=== PATIENT | female | born 1995 | race Caucasian/White ===

== ENCOUNTER 2017-11-17 14:00 | Emergency (ER) | payer OTHER ==
[2017-11-17 14:13] VITALS: TEMP 98.8
--- NOTE | 2017-11-17 14:33 | EDPHY ---
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 Last night she became ill with fever and diarrhea. The illness began during the night--she awoke drenched in sweat felt somewhat out of it and confused and thought that she had a fever. She has had 3 bouts of diarrhea since then and several other episodes of subjective fever. She has been taking ibuprofen and last took 2 ibuprofen 5 hr ago. She has not had diarrhea for the past 4 hr. She had some nausea earlier but no vomiting. She had some mild abdominal pain but is not currently in pain. She has not had cough, sore throat, myalgias, headache. She did have influenza in July and what was tested for it at that time. REVIEW OF SYSTEMS: A ten point review of systems was performed and is negative with the exception of the items mentioned in the HPI. 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 She does not use tobacco products. She is here with her mother, who lives in [facility]. General Appearance: Alert. Vital signs reviewed. Blood pressure 141/83 at triage. Eyes: Pupils equal and round, no conjunctival injection, no discharge. Anicteric. ENT, Mouth: Mucous membranes are moist, no oropharyngeal erythema or edema. Tympanic membranes normal. Neck: No lymphadenopathy, supple. Respiratory: Lungs are clear to auscultation; no wheezes, rales, or rhonchi. Cardiovascular: Regular rate and rhythm; no murmur, rub, or gallop. Gastrointestinal: Abdomen is soft and nontender, no masses or organomegaly, bowel sounds normal. Skin: Warm and dry, no rashes on exposed skin, normal color. Back: Nontender to palpation over the thoracolumbar spine. No CVAT. Extremities: No lower extremity edema, no calf tenderness or swelling. Neurological: Alert and oriented. Moving all four extremities easily and equally. Psychiatric: Normal affect. - Personal History Current Tetanus/Diphtheria Vaccine: Yes - Medical/Surgical History Hx Asthma: No Hx Chronic Respiratory Disease: No Hx Diabetes: No Hx Cardiac Disease: No Hx Renal Disease: No Hx Cirrhosis: No Hx Alcoholism: No Hx HIV/AIDS: No Hx Splenectomy or Spleen Trauma: No - Social History Smoking Status: Never smoked Constitutional: Initial Vital Signs Temperature (C) 37.1 C 11/17/17 14:12 Heart Rate 84 11/17/17 14:12 Respiratory Rate 16 11/17/17 14:12 Blood Pressure 141/83 H 11/17/17 14:12 O2 Sat (%) 96 11/17/17 14:12 O2 Delivery Mode Room Air Allergies/Adverse Reactions: No Known Allergies Allergy (Unverified 11/17/17 14:13) Home Medications: Medication Instructions Recorded NK [No Known Home Meds] 11/17/17 Medical Decision Making ED Course/Re-evaluation: She is well-hydrated. She has not had any fever diarrhea for the last 4-5 hours. I feel that she can safely return home. We discussed symptomatic treatment if she has more diarrhea. Fever control reviewed. Initial blood pressure was high as was her blood pressure at discharge with a diastolic around 90. She is aware of this and advised to have this followed up by her primary care doctor. Differential Diagnosis: Considered a differential diagnosis that includes but is not limited to gastroenteritis, diarrhea secondary to virus/bacteria/parasite, C difficile. Departure - Departure Disposition: Home, Routine, Self-Care Clinical Impression: Fever Qualifiers: Fever type: unspecified Qualified Code(s): R50.9 - Fever, unspecified Diarrhea Qualifiers: Diarrhea type: presumed infectious Qualified Code(s): R19.7 - Diarrhea, unspecified Condition: Good Instructions: Fever in Adults (ED), Acute Diarrhea (ED) Additional Instructions: Adult Pain & Fever Control: We recommend Acetaminophen (Tylenol) and Ibuprofen (Motrin,Advil) for pain and fever control. When fever is high or pain severe, both drugs can be used at the same time, but at different intervals. Please note the time differences. Your dose is: Acetaminophen [650]mg every 4 to 6 hours Ibuprofen [400]mg every [6] hours with food OR Note: do not take Acetaminophen with Hydrocodone (Vicodin, Lortab) or Oycodone (Percocet). These medications also contain Acetaminophen. No more than 3000mg of Acetaminophen should be taken in 24 hours (for an adult). Return if you have copious diarrhea and become dehydrated with your worse in any way--persistent fever, abdominal pain, nausea vomiting--any new or concerning symptoms. Follow-up at [facility]. I have given you their number and Dr. Rizzo's name, it is fine for you to see any doctor or caregiver there. Referrals: Maricel Rizzo MD [Medical Doctor] - As per Instructions
[2017-11-17 15:41] VITALS: BP 133/89; PULSE 83; RESP 18; O2SAT 95
== END 2017-11-17 15:40 | disposition home or self-care (01) ==
DX: R19.7 Diarrhea, unspecified (principal); R50.9 Fever, unspecified

== ENCOUNTER → 2018-10-03 | Outpatient (CLI) | payer OTHER | LOC: FIMAGING 12:31 | PROVIDERS: ATTEND Registered Nurse | DX: R05 Cough (principal); R07.9 Chest pain, unspecified; R06.09 Other forms of dyspnea ==